=== PATIENT | male | born 1955 | race Caucasian/White ===

== ENCOUNTER 2016-12-25 13:11 | Emergency (ER) | payer OTHER ==
[~2016-12-25] VITALS: Ht 170.2 cm; Wt 72.6 kg
[2016-12-25 15:07] VITALS: BP 137/85
== END 2016-12-25 14:47 | disposition home or self-care (01) ==
LOC: ED 13:11
DX: M54.42 Lumbago with sciatica, left side (principal); M54.41 Lumbago with sciatica, right side

== ENCOUNTER 2019-02-22 23:22 | Emergency (ER) | payer OTHER ==
[~2019-02-22] VITALS: Ht 170.2 cm; Wt 72.6 kg
[2019-02-22 23:37] VITALS: Ht 170.2 cm; Wt 72.6 kg
[2019-02-23 01:05] VITALS: BP 135/93
== END 2019-02-23 01:05 | disposition home or self-care (01) ==
LOC: ED 23:22
DX: S91.114A Laceration without foreign body of right lesser toe(s) without damage to nail, initial encounter (principal); I10 Essential (primary) hypertension; X58.XXXA Exposure to other specified factors, initial encounter; Y93.89 Activity, other specified; Y92.89 Other specified places as the place of occurrence of the external cause; Y99.8 Other external cause status
CPT/HCPCS: 90715; Q0092